=== PATIENT | female | born 1950 | race Caucasian/White ===

== ENCOUNTER 2021-07-14 00:53 | Inpatient (IN) ==
[2021-07-14] MEDS ORDERED: ACETAMINOPHEN 1,000 MG/100 ML BAG IV ONE (01:21)
[2021-07-14] MEDS ORDERED: 0.9 % SODIUM CHLORIDE 500 ML IV ONE ×4 (01:24→03:41)
[2021-07-14 01:45] LABS: POC Calcium, Ionized 1.1 (1.16-1.32); POC Creatinine 0.4 (0.6-1.2)
[2021-07-14 02:11] LABS: Basophils # (Auto) 0.03 K/mcL (0.00-0.30); Basophils % (Auto) 0.2 % (0.0-2.0); Eosinophils # (Auto) 0.03 K/mcL (0.00-0.70); Eosinophils % (Auto) 0.2 % (0.0-7.0); Hematocrit 47.8 % (34.1-44.9); Hemoglobin 16.2 g/dL (11.2-15.7); Lymphocytes # (Auto) 0.92 K/mcL (1.50-4.80); Lymphocytes % (Auto) 7.2 % (15.5-49.0); Mean Cell Volume 89.2 fL (80.0-100.0); Mean Corpuscular HGB Conc 33.9 g/dL (31.0-36.0); Mean Platelet Volume 8.9 fL (7.4-10.4); Monocytes # (Auto) 1.15 K/mcL (0.10-0.90); Neutrophils % (Auto) 83.4 % (38.0-78.0); Platelet Count 207 K/mcL (140-440); RBC 5.36 M/mcL (3.59-5.38); Red Cell Distribution Width 13.8 % (11.5-14.5); WBC 12.8 K/mcL (4.5-11.0)
[2021-07-14] MEDS ORDERED: DILTIAZEM 25 MG/5 ML VIAL IV ONE (02:13)
[2021-07-14] MEDS ORDERED: KETOROLAC 30 MG/ML VIAL IV ONE (02:13)
[2021-07-14] MEDS ORDERED: AZITHROMYCIN 500 MG in DEXTROSE 5% IN WATER 250 ML IV ONE (02:15)
[2021-07-14] MEDS ORDERED: cefTRIAXone 1 GM VIAL IV ONE (02:15)
[2021-07-14 02:22] LABS: ALT/SGPT 17 U/L (<40); AST/SGOT 28 U/L (<32); Alkaline Phosphatase 73 U/L (39-117); Bilirubin,Direct < 0.2 mg/dL (0-0.3); Bilirubin,Total 0.5 mg/dL (0.1-1.0); Globulin 3.3 gm/dL (2.2-3.7)
[2021-07-14] MEDS ORDERED: IPRATROPIUM/ALBUTEROL 3 ML AMPUL.NEB NEB ONE (02:58)
--- NOTE | 2021-07-14 05:33 | Emergency Department Note ---
SOB HPI General Chief Complaint: Shortness of Breath/Dyspnea Stated Complaint: shortness of breath Time Seen by Provider: 07/14/21 01:08 Source: family Mode of arrival: wheelchair Limitations: no limitations History of Present Illness HPI Narrative: Narrative: 71-year-old female history of obesity, A. fib, hypertension hypothyroid hyperlipidemia presenting to the ED for shortness of breath cough suspected COVID-19. Symptoms ongoing for the past several days. Patient is not vaccinated. She has had high fevers fatigue severe cough intermittently productive and runny nose. No chest pain. Has had some mild diarrhea. No new leg swelling, but has chronic mild edema. She took a home COVID test which was positive. But given her worsening dyspnea and cough came to the ER. No other complaints. Related Data Home Medications Medication Instructions Recorded Confirmed cholecalciferol (vitamin D3) 125 5,000 unit PO QDAY 12/05/18 10/06/20 mcg (5,000 unit) capsule coenzyme Q10 10 mg capsule (Co 10 mg PO ONCE 12/05/18 10/06/20 Q-10) Previous Rx's Medication Instructions Recorded gabapentin 100 mg capsule See Rx Instructions PO QHS #180 cap 10/18/20 liothyronine 25 mcg tablet See Rx Instructions .ROUTE 06/30/21 .COMPLEX #90 tab losartan 100 mg tablet See Rx Instructions .ROUTE 06/30/21 .COMPLEX #90 tablet levothyroxine 175 mcg tablet See Rx Instructions .ROUTE 07/11/21 .COMPLEX #90 tab Allergies Allergy/AdvReac Type Severity Reaction Status Date / Time No Known Drug Allergies Allergy Verified 10/06/20 10:37 Review of Systems ROS ROS Narrative: Narrative: All systems ED: reviewed and negative except as stated. [facility] Narrative Patient History Narrative: Narrative: Medical/Surgical/Family History All Active Problems Sepsis (Acute) Pneumonia (Acute) Cellulitis of right leg (Acute) Foot pain (Acute) Peripheral neuropathy (Acute) Hypertriglyceridemia (Chronic) Well adult exam (Chronic) Hypothyroidism (Chronic) Risk and functional assessment (Acute) HTN (hypertension) (Chronic) Medical History Atrial fibrillation Degenerative joint disease Eczema Foot pain Gout HTN (hypertension) Hypertension Hypertriglyceridemia Hypothyroidism Insulin resistance syndrome Palpitations Peripheral neuropathy Vitamin D deficiency Well adult exam Social History Smoking Status: Former smoker Exam Narrative Narrative: Narrative:Constitutional: normally developed, overall ill-appearing, labored breathing frequent cough Head: Normocephalic, atraumatic, Eyes: No Icterus, ENT: Moist mucus membranes, Neck: Supple, Cardiac: Tachycardic irregular heart sounds, palpable radial pulses, mild symmetric lower extremity pitting edema Pulmonary: Labored tachypneic with coughing fits, pulse ox 89% on room air, very coarse breath sounds with sporadic rhonchi and wheeze Gastrointestinal: Abdomen soft, non-distended, non-tender, Musculoskeletal: No gross deformities, well perfused Skin: warm, dry Neuro: Alert and oriented. General Limitations: no limitations Course Vital Signs Vital signs: Vital Signs Temperature 39.4 C H 07/14/21 00:54 Pulse Rate 142 H 07/14/21 00:54 Respiratory Rate 17 07/14/21 00:54 Blood Pressure 147/88 07/14/21 00:54 Pulse Oximetry (%) 92 07/14/21 00:54 Temperature 38.2 C H 07/14/21 03:39 Pulse Rate 83 07/14/21 06:40 Respiratory Rate 22 07/14/21 06:40 Blood Pressure 107/52 07/14/21 06:33 Pulse Oximetry (%) 95 07/14/21 06:40 MDM MDM Narrative Medical decision making narrative: Narrative: 71-year-old female multiple comorbidities presenting with dyspnea difficulty breathing cough fever and positive COVID-19 test at home. She is not vaccinated. Here in the ER she is labored, tachypneic, febrile, quite tachycardic meets multiple SIRS criteria, is in A. fib with rapid rate in the 140s, sat dipped to 89% RA. Gave her Toradol, Tylenol for high fever. Will give her IV fluid boluses of 500 cc aliquots as she does have some lower extremity edema already, will monitor for any signs of developing volume overload Patient maintaining adequate pulse ox on 2 L nasal cannula Twelve-lead EKG A. fib heart rate 134 QTC within normal diffuse Q waves no STEMI criteria no old EKG for comparison Chest x-ray per my interpretation mild patchy opacities Our rapid COVID test was negative, suspicion is still high we will send off PCR Given presentation but neg rapid covid, did cover her for possible bacterial p neumonia with Rocephin/azithromycin, although suspicion for COVID-19 is still very high Reevaluation fever markedly improved, her tachycardia resolving with IV fluids, we will continue. Patient feeling better following DuoNeb CBC leukocytosis 12.8 hemoglobin of 16, no thrombocytopenia D-dimer -0.36 Troponin -0.01 Initial blood gas VBG, pH 7.4, PCO2 36, PO2 55, lactate 2.1 Electrolytes does show a initial glucose of 215, she is not a known diabetic, will repeat Accu-Chek - 171 Reevaluation patient markedly improved comfortable on nasal cannula, her tachycardia has resolved, and vital signs are all stable. She has received 30 cc/kg bolus of ideal body weight given morbid obesity (2L IVF) Repeat lactic normal 1.2 Given her presentation, sepsis criteria, and the fact she is requiring some nasal cannula oxygenation do believe she meets criteria for admission. Hospitalist accepts admission, does agree we will start 6 mg dexamethasone at this time. Critical Care Time Total CriticalCare time was at least 45 minutes, excluding separately reportable procedures. There was a high probability of clinically significant/life threatening deterioration in the patient's condition which required my urgent intervention. Lab Data Result diagrams: 07/14/21 01:28 Labs: Lab Results 07/14/21 07/14/21 07/14/21 Range/Units 01:28 01:28 01:28 WBC 12.8 H (4.5-11.0) K/mcL RBC 5.36 (3.59-5.38) M/mcL Hgb 16.2 H (11.2-15.7) g/dL Hct 47.8 H (34.1-44.9) % POC Hct (36-48) MCV 89.2 (80.0-100.0) fL MCH 30.2 (26.0-34.0) pg MCHC 33.9 (31.0-36.0) g/dL RDW 13.8 (11.5-14.5) % Plt Count 207 (140-440) K/mcL MPV 8.9 (7.4-10.4) fL Neut % (Auto) 83.4 H (38.0-78.0) % Lymph % (Auto) 7.2 L (15.5-49.0) % Freestone % (Auto) 9.0 (1.0-12.0) % Eos % (Auto) 0.2 (0.0-7.0) % Baso % (Auto) 0.2 (0.0-2.0) % Lymph # (Auto) 0.92 L (1.50-4.80) K/mcL Freestone # (Auto) 1.15 H (0.10-0.90) K/mcL Eos # (Auto) 0.03 (0.00-0.70) K/mcL Baso # (Auto) 0.03 (0.00-0.30) K/mcL Absolute Neutrophils 10.69 H (1.80-8.00) K/mcL D-Dimer (0.27-0.50) ug/mL POC VBG pH (7.32-7.42) POC VBG pCO2 at Temp (41-51) POC VBG pO2 (25-40) POC VBG HCO3 (24-28) POC VBG Total CO2 (25-29) POC Venous O2 Sat (40-70) POC VBG Base Excess (-2-2) VBG Lactic Acid (0.5-2.0) mmol/L POC Sodium (133-145) POC Potassium (3.3-5.1) POC Chloride (96-108) POC Total CO2 (22-30) POC BUN (6-20) POC Creatinine (0.6-1.2) POC Glucose (70-105) POC Venous Lactate (0.5-2) POC WB Ioniz Calcium (1.16-1.32) Total Bilirubin 0.5 (0.1-1.0) mg/dL Direct Bilirubin < 0.2 (0-0.3) mg/dL AST 28 (<32) U/L ALT 17 (<40) U/L Alkaline Phosphatase 73 (39-117) U/L Troponin T < 0.01 (<0.03) ng/mL Total Protein 7.3 (5.9-8.4) gm/dL Albumin 4.0 (3.2-5.2) gm/dL Globulin 3.3 (2.2-3.7) gm/dL POC Troponin I (0.02-0.08) 07/14/21 07/14/21 07/14/21 Range/Units 01:28 01:29 01:31 WBC (4.5-11.0) K/mcL RBC (3.59-5.38) M/mcL Hgb (11.2-15.7) g/dL Hct (34.1-44.9) % POC Hct 47.0 (36-48) MCV (80.0-100.0) fL MCH (26.0-34.0) pg MCHC (31.0-36.0) g/dL RDW (11.5-14.5) % Plt Count (140-440) K/mcL MPV (7.4-10.4) fL Neut % (Auto) (38.0-78.0) % Lymph % (Auto) (15.5-49.0) % Freestone % (Auto) (1.0-12.0) % Eos % (Auto) (0.0-7.0) % Baso % (Auto) (0.0-2.0) % Lymph # (Auto) (1.50-4.80) K/mcL Freestone # (Auto) (0.10-0.90) K/mcL Eos # (Auto) (0.00-0.70) K/mcL Baso # (Auto) (0.00-0.30) K/mcL Absolute Neutrophils (1.80-8.00) K/mcL D-Dimer 0.36 (0.27-0.50) ug/mL POC VBG pH 7.44 H (7.32-7.42) POC VBG pCO2 at Temp 36.8 L (41-51) POC VBG pO2 55 H (25-40) POC VBG HCO3 24.7 (24-28) POC VBG Total CO2 26.0 (25-29) POC Venous O2 Sat 89.0 H (40-70) POC VBG Base Excess 1.0 (-2-2) VBG Lactic Acid (0.5-2.0) mmol/L POC Sodium 137 (133-145) POC Potassium 4.0 (3.3-5.1) POC Chloride 99 (96-108) POC Total CO2 24.0 (22-30) POC BUN 14 (6-20) POC Creatinine 0.4 L (0.6-1.2) POC Glucose 215 H (70-105) POC Venous Lactate 2.1 H (0.5-2) POC WB Ioniz Calcium 1.10 L (1.16-1.32) Total Bilirubin (0.1-1.0) mg/dL Direct Bilirubin (0-0.3) mg/dL AST (<32) U/L ALT (<40) U/L Alkaline Phosphatase (39-117) U/L Troponin T (<0.03) ng/mL Total Protein (5.9-8.4) gm/dL Albumin (3.2-5.2) gm/dL Globulin (2.2-3.7) gm/dL POC Troponin I (0.02-0.08) 07/14/21 07/14/21 Range/Units 01:31 04:58 WBC (4.5-11.0) K/mcL RBC (3.59-5.38) M/mcL Hgb (11.2-15.7) g/dL Hct (34.1-44.9) % POC Hct (36-48) MCV (80.0-100.0) fL MCH (26.0-34.0) pg MCHC (31.0-36.0) g/dL RDW (11.5-14.5) % Plt Count (140-440) K/mcL MPV (7.4-10.4) fL Neut % (Auto) (38.0-78.0) % Lymph % (Auto) (15.5-49.0) % Freestone % (Auto) (1.0-12.0) % Eos % (Auto) (0.0-7.0) % Baso % (Auto) (0.0-2.0) % Lymph # (Auto) (1.50-4.80) K/mcL Freestone # (Auto) (0.10-0.90) K/mcL Eos # (Auto) (0.00-0.70) K/mcL Baso # (Auto) (0.00-0.30) K/mcL Absolute Neutrophils (1.80-8.00) K/mcL D-Dimer (0.27-0.50) ug/mL POC VBG pH (7.32-7.42) POC VBG pCO2 at Temp (41-51) POC VBG pO2 (25-40) POC VBG HCO3 (24-28) POC VBG Total CO2 (25-29) POC Venous O2 Sat (40-70) POC VBG Base Excess (-2-2) VBG Lactic Acid 1.2 (0.5-2.0) mmol/L POC Sodium (133-145) POC Potassium (3.3-5.1) POC Chloride (96-108) POC Total CO2 (22-30) POC BUN (6-20) POC Creatinine (0.6-1.2) POC Glucose (70-105) POC Venous Lactate (0.5-2) POC WB Ioniz Calcium (1.16-1.32) Total Bilirubin (0.1-1.0) mg/dL Direct Bilirubin (0-0.3) mg/dL AST (<32) U/L ALT (<40) U/L Alkaline Phosphatase (39-117) U/L Troponin T (<0.03) ng/mL Total Protein (5.9-8.4) gm/dL Albumin (3.2-5.2) gm/dL Globulin (2.2-3.7) gm/dL POC Troponin I 0.01 L (0.02-0.08) ED POC Tests ED POC Tests: ARMANDO - SARS Antigen Negative Discharge Plan Patient/Caregiver Discharge Instructions Pt seen by [facility]/PA only: No Clinical Impression: Sepsis, Pneumonia Patient Disposition: Xfer As Inpt ([facility]) Condition: Serious Follow up with: Chance Mendez ARNP [Primary Care Provider] - Prescriptions: No Action coenzyme Q10 [Co Q-10] 10 mg capsule 10 mg PO ONCE 0RF cholecalciferol (vitamin D3) 5,000 unit capsule 5,000 unit PO QDAY 0RF gabapentin 100 mg capsule See Rx Instructions PO QHS Qty: 180 1RF Rx Instructions: alternating 300 mg and 500 mg q day PO every day at bedtime; liothyronine 25 mcg tablet See Rx Instructions .ROUTE .COMPLEX Qty: 90 0RF Dose Instruction: TAKE 1 TABLET EVERY DAY Rx Instructions: TAKE 1 TABLET EVERY DAY losartan 100 mg tablet See Rx Instructions .ROUTE .COMPLEX Qty: 90 0RF Dose Instruction: TAKE 1/2 TABLET TWICE DAILY Rx Instructions: TAKE 1/2 TABLET TWICE DAILY levothyroxine 175 mcg tablet See Rx Instructions .ROUTE .COMPLEX Qty: 90 0RF Dose Instruction: TAKE 1 TABLET EVERY DAY Rx Instructions: TAKE 1 TABLET EVERY DAY
[2021-07-14] MEDS ORDERED: DEXAMETHASONE 10 MG/ML VIAL IV ONE (06:53)
[2021-07-14] MEDS ORDERED: LACTULOSE 20 GM/30 ML ORAL.SOL PO PRN (07:48)
[2021-07-14] MEDS ORDERED: SENNOSIDES 1 TABLET PO PRN (07:48)
[2021-07-14] MEDS ORDERED: ONDANSETRON 4 MG/2 ML VIAL IV PRN (07:48)
[2021-07-14] MEDS: BUDESONIDE 0.5 MG/2 ML AMPUL.NEB NEB SCH ×2 (08:01→19:23)
--- NOTE | 2021-07-14 09:03 | XRay Report ---
HISTORY: Short of breath, Covid positive, weakness FINDINGS: There is a generalized haziness in the lower lobes bilaterally. Some of this is due to superimposed subcutaneous fat in the chest wall. However, underlying pneumonia is suspected, most apparent in the left lower lobe. The upper lung soto are clear. The heart is mildly enlarged but magnified by portable technique. IMPRESSION: Mild bibasilar pneumonia Interpreted and Authenticated by: Juan C Osuna 07/14/21
--- NOTE | 2021-07-14 09:22 | Internal Med History&Physical ---
HPI History of Present Illness Patient information: Note initiated : 07/14/21 at 9:16 am Service Date, if different from initiated Date: [as above] Patient: Kinza Zavala 71 y/o F admitted on 07/14/21 for SOB . Chief Complaint: [SOB] Chief complaint: Dyspnea History of present illness: Ms. Zavala is a 71 year old F with a past medical history significant for morbid obesity, hypothyroidism, and hypertension who presents to the hospital with progressive dyspnea. Of note, the patient is unvaccinated. She developed progressive shortness of breath, malaise, and a productive cough. She decided to come in to the ER for further management and evaluation as her symptoms continue to worsen. She lives at home with her who has not been tested as of yet. On presentation, she was hemodynamically stable and afebrile however she was hypoxemic with an O2 sat of 89% on ambient air. In the ER, she was found to have a white blood cell count of 12 and her chest x-ray was concerning for bibasilar opacities. The hospital service was asked admit the patient for further management and evaluation of her acute hypoxemic respiratory failure in the setting of SARS-CoV-2. Review of Systems All systems: reviewed and no additional remarkable complaints except as stated Constitutional Constitutional: Present as per HPI EENT Eyes: Present as per HPI; Absent blurry vision Cardiovascular Cardiovascular: Present as per HPI; Absent chest pain, dyspnea, dyspnea on exertion, leg edema or palpatations Respiratory Respiratory: Present as per HPI, cough, dyspnea and dyspnea on exertion; Absent wheezing or stridor Gastrointestinal Gastrointestinal: Present as per HPI; Absent abdominal pain, diarrhea, dyspha padma, hematemesis, melena, nausea or vomiting Musculoskeletal Musculoskeletal: Present as per HPI; Absent joint swelling, limited range of motion, muscle cramps, muscle weakness or myalgias Integumentary Integumentary: Present as per HPI; Absent erythema, new lesions, rash or wounds Neurological Neurological: Present as per HPI; Absent abnormal gait, behavioral changes, focal weakness, headache(s), loss of vision, numbness, sensory deficit or syncope Endocrine Endocrine: Absent change in body appearance, fatigue or heat intolerance Hematologic/Lymphatic Hematologic/Lymphatic: Present as per HPI PFSH PFSH All Active Problems (Updated 07/14/21 @ 09:20 by Sumanth Keys MD) Unvaccinated for covid-19 (Acute) Morbid obesity (Acute) COVID-19 (Acute) Sepsis (Acute) Pneumonia (Acute) Cellulitis of right leg (Acute) Foot pain (Acute) Peripheral neuropathy (Acute) Hypertriglyceridemia (Chronic) Well adult exam (Chronic) Hypothyroidism (Chronic) Risk and functional assessment (Acute) HTN (hypertension) (Chronic) Medical History Atrial fibrillation Degenerative joint disease Eczema Foot pain Gout HTN (hypertension) Hypertension Hypertriglyceridemia Hypothyroidism Insulin resistance syndrome Palpitations Peripheral neuropathy Vitamin D deficiency Well adult exam Social History marital status: occupational status: disabled occupation: Unable to work since 2007 MEDS/ALLERGIES Home Medications and Allergies Home Medications Medication Instructions Recorded Confirmed Type cholecalciferol (vitamin D3) 125 5,000 unit PO QDAY 12/05/18 07/14/21 History mcg (5,000 unit) capsule coenzyme Q10 10 mg capsule (Co 10 mg PO ONCE 12/05/18 07/14/21 History Q-10) liothyronine 25 mcg tablet See Rx Instructions .ROUTE 06/30/21 07/14/21 Rx .COMPLEX #90 tab losartan 100 mg tablet See Rx Instructions .ROUTE 06/30/21 07/14/21 Rx .COMPLEX #90 tablet levothyroxine 175 mcg tablet See Rx Instructions .ROUTE 07/11/21 07/14/21 Rx .COMPLEX #90 tab Allergies Allergy/AdvReac Type Severity Reaction Status Date / Time No Known Drug Allergies Allergy Verified 07/14/21 08:16 EXAM Constitutional Vitals: Temp Pulse Resp BP Pulse Ox 98.8 F 85 20 138/73 93 07/14/21 07:38 07/14/21 07:38 07/14/21 07:38 07/14/21 07:38 07/14/21 07:38 General appearance: mild distress and morbidly obese Head Head exam: Present atraumatic, normal inspection and normocephalic Eye Eye exam: Present EOMI, normal appearance and PERRL; Absent conjunctival injection ENT ENT exam: Present normal exam; Absent mucous membranes dry Neck Neck exam: Present full ROM; Absent lymphadenopathy Respiratory Respiratory exam: Present normal respiratory exam, accessory muscle use, decreased breath sounds and rhonchi; Absent CTAB, respiratory distress or wheezes Cardiovascular Cardiovascular exam: Present normal rate and rhythm and RRR; Absent JVD GI/Abdominal GI/Abdominal exam: Present normal bowel sounds and soft; Absent diminished bowel sounds, distended, guarding, mass, rebound or tenderness Neurological Exam Neurological exam: Present alert, CN II-XII intact and oriented X3 Psychiatric Psychiatric exam: Present normal affect and normal mood Skin Skin exam: Present intact and warm; Absent erythema, pallor, petechiae or rash DATA Data Completed and Pending Labs: Labs from last 24 hours 07/14/21 07/14/21 07/14/21 08:18 04:58 01:31 WBC RBC Hgb Hct POC Hct MCV MCH MCHC RDW Plt Count MPV Neut % (Auto) Lymph % (Auto) Barnes % (Auto) Eos % (Auto) Baso % (Auto) Lymph # (Auto) Barnes # (Auto) Eos # (Auto) Baso # (Auto) Absolute Neutrophils D-Dimer POC VBG pH POC VBG pCO2 at Temp POC VBG pO2 POC VBG HCO3 POC VBG Total CO2 POC Venous O2 Sat POC VBG Base Excess VBG Lactic Acid 1.2 POC Sodium Sodium Pending POC Potassium Potassium Pending POC Chloride Chloride Pending Carbon Dioxide Pending POC Total CO2 Anion Gap Pending POC BUN BUN Pending Creatinine Pending POC Creatinine GFR Calculation Pending Glucose Pending POC Glucose POC Venous Lactate Calcium Pending POC WB Ioniz Calcium Total Bilirubin Direct Bilirubin AST ALT Alkaline Phosphatase Troponin T Total Protein Albumin Globulin POC Troponin I 0.01 L 07/14/21 07/14/21 07/14/21 01:31 01:29 01:28 WBC RBC Hgb Hct POC Hct 47.0 MCV MCH MCHC RDW Plt Count MPV Neut % (Auto) Lymph % (Auto) Barnes % (Auto) Eos % (Auto) Baso % (Auto) Lymph # (Auto) Barnes # (Auto) Eos # (Auto) Baso # (Auto) Absolute Neutrophils D-Dimer 0.36 POC VBG pH 7.44 H POC VBG pCO2 at Temp 36.8 L POC VBG pO2 55 H POC VBG HCO3 24.7 POC VBG Total CO2 26.0 POC Venous O2 Sat 89.0 H POC VBG Base Excess 1.0 VBG Lactic Acid POC Sodium 137 Sodium POC Potassium 4.0 Potassium POC Chloride 99 Chloride Carbon Dioxide POC Total CO2 24.0 Anion Gap POC BUN 14 BUN Creatinine POC Creatinine 0.4 L GFR Calculation Glucose POC Glucose 215 H POC Venous Lactate 2.1 H Calcium POC WB Ioniz Calcium 1.10 L Total Bilirubin Direct Bilirubin AST ALT Alkaline Phosphatase Troponin T Total Protein Albumin Globulin POC Troponin I 07/14/21 07/14/21 07/14/21 01:28 01:28 01:28 WBC 12.8 H RBC 5.36 Hgb 16.2 H Hct 47.8 H POC Hct MCV 89.2 MCH 30.2 MCHC 33.9 RDW 13.8 Plt Count 207 MPV 8.9 Neut % (Auto) 83.4 H Lymph % (Auto) 7.2 L Barnes % (Auto) 9.0 Eos % (Auto) 0.2 Baso % (Auto) 0.2 Lymph # (Auto) 0.92 L Barnes # (Auto) 1.15 H Eos # (Auto) 0.03 Baso # (Auto) 0.03 Absolute Neutrophils 10.69 H D-Dimer POC VBG pH POC VBG pCO2 at Temp POC VBG pO2 POC VBG HCO3 POC VBG Total CO2 POC Venous O2 Sat POC VBG Base Excess VBG Lactic Acid POC Sodium Sodium POC Potassium Potassium POC Chloride Chloride Carbon Dioxide POC Total CO2 Anion Gap POC BUN BUN Creatinine POC Creatinine GFR Calculation Glucose POC Glucose POC Venous Lactate Calcium POC WB Ioniz Calcium Total Bilirubin 0.5 Direct Bilirubin < 0.2 AST 28 ALT 17 Alkaline Phosphatase 73 Troponin T < 0.01 Total Protein 7.3 Albumin 4.0 Globulin 3.3 POC Troponin I A/P Assessment and plan (1) Hypothyroidism: Status: Chronic Qualifiers: Hypothyroidism type: acquired Qualified Code(s): E03.9 - Hypothyroidism, unspecified (2) HTN (hypertension): Status: Chronic Qualifiers: Hypertension type: essential hypertension Qualified Code(s): I10 - Essential (primary) hypertension (3) Sepsis: Status: Acute (4) Pneumonia: Status: Acute (5) COVID-19: Status: Acute (6) Morbid obesity: Status: Acute (7) Unvaccinated for covid-19: Status: Acute Narrative A/P Narrative: The patient is morbidly obese, and with her advanced age she is high risk for developing worsening respiratory failure. She presented to the hospital with hypoxemia and meets criteria for remdesivir and dexamethasone. Of note her home COVID test was positive however her test here in the ER was negative. PCR is pending. We will add a respiratory panel. She will be empirically covered with ceftriaxone and Zithromax. She has been started on dexamethasone and remdesivir per recovery trial. Continue duo nebs and Pulmicort. Time Spent With Patient Time: Total time spent is greater than 50% in coordination of care (as documented) at patient's floor/unit and/or counseling patient: QUALITY VTE Deep Vein Thrombosis/Pulmonary Embolism Present on Admission: No
[2021-07-14] MEDS ORDERED: REMDESIVIR 200 MG in 0.9 % SODIUM CHLORIDE 250 ML IV ONE (09:30)
[2021-07-14 09:36] LABS: Blood Urea Nitrogen 12 mg/dL (8-23); Calcium 8.2 mg/dL (8.6-10.4); Carbon Dioxide 23 mmol/L (22-30); Chloride 100 mmol/L (96-108); Glomerular Filtration Rate 105; Glucose 151 mg/dL (70-105)
[2021-07-14] MEDS ORDERED: LEVOTHYROXINE SODIUM 175 MCG TABLET PO SCH (10:00)
[2021-07-14] MEDS: 0.9 % SODIUM CHLORIDE 10 ML SYRINGE IV SCH ×3 (10:00→20:28)
[2021-07-14] MEDS: DOCUSATE SODIUM 100 MG CAPSULE PO SCH ×2 (10:01→20:21)
[2021-07-14] MEDS: ENOXAPARIN 40 MG/0.4 ML SYRINGE SQ SCH (10:01)
[2021-07-14] MEDS: LEVOTHYROXINE 100 MCG TABLET PO SCH (11:37)
[2021-07-14] MEDS: LEVOTHYROXINE 75 MCG TABLET PO SCH (11:37)
[2021-07-14] MEDS: LIOTHYRONINE 5 MCG TABLET PO SCH (11:38)
[2021-07-14] MEDS: IPRATROPIUM/ALBUTEROL 3 ML AMPUL.NEB NEB SCH ×2 (13:13→19:23)
[2021-07-14] MEDS ORDERED: NON FORMULARY MEDICATION 1 DOSE MISCELL (Losartan 100 mg tablet) SCH (17:15)
[2021-07-14] MEDS: BENZONATATE 100 MG CAPSULE PO PRN (17:49)
[2021-07-14] MEDS: ACETAMINOPHEN 325 MG TABLET PO PRN (19:15)
[2021-07-14] MEDS: SUCRETS LOZENGE PO PRN (20:28)
[2021-07-14] MEDS: LOSARTAN 50 MG TABLET PO SCH (20:28)
[2021-07-14] MEDS: guaiFENesin 600 MG TAB.SR.12H PO SCH (20:28)
[2021-07-14] MEDS: GABAPENTIN 100 MG CAPSULE PO SCH ×2 (21:48→22:45)
[2021-07-15] MEDS: IPRATROPIUM/ALBUTEROL 3 ML AMPUL.NEB NEB SCH ×4 (01:27→19:27)
[2021-07-15] MEDS: SUCRETS LOZENGE PO PRN ×3 (01:39→22:52)
[2021-07-15] MEDS: ACETAMINOPHEN 325 MG TABLET PO PRN ×3 (05:05→22:54)
[2021-07-15 06:31] LABS: Basophils # (Auto) 0.03 K/mcL (0.00-0.30); Basophils % (Auto) 0.4 % (0.0-2.0); Eosinophils # (Auto) 0.01 K/mcL (0.00-0.70); Eosinophils % (Auto) 0.1 % (0.0-7.0); Hematocrit 43.4 % (34.1-44.9); Hemoglobin 14.1 g/dL (11.2-15.7); Lymphocytes # (Auto) 1.84 K/mcL (1.50-4.80); Lymphocytes % (Auto) 22.7 % (15.5-49.0); Mean Cell Volume 92.1 fL (80.0-100.0); Mean Corpuscular HGB Conc 32.5 g/dL (31.0-36.0); Mean Platelet Volume 8.9 fL (7.4-10.4); Monocytes # (Auto) 0.85 K/mcL (0.10-0.90); Monocytes % (Auto) 10.5 % (1.0-12.0); Neutrophils % (Auto) 66.3 % (38.0-78.0); Platelet Count 193 K/mcL (140-440); RBC 4.71 M/mcL (3.59-5.38); WBC 8.1 K/mcL (4.5-11.0)
[2021-07-15] MEDS: BUDESONIDE 0.5 MG/2 ML AMPUL.NEB NEB SCH ×2 (07:37→19:27)
[2021-07-15] MEDS ORDERED: REMDESIVIR 100 MG in 0.9 % SODIUM CHLORIDE 250 ML IV SCH (08:00)
[2021-07-15] MEDS: DOCUSATE SODIUM 100 MG CAPSULE PO SCH ×2 (08:31→20:30)
[2021-07-15] MEDS: 0.9 % SODIUM CHLORIDE 10 ML SYRINGE IV SCH ×3 (08:41→20:44)
[2021-07-15] MEDS: ENOXAPARIN 40 MG/0.4 ML SYRINGE SQ SCH (08:41)
[2021-07-15] MEDS: guaiFENesin 600 MG TAB.SR.12H PO SCH ×2 (08:42→20:30)
[2021-07-15] MEDS: LIOTHYRONINE 5 MCG TABLET PO SCH (08:42)
[2021-07-15] MEDS: LEVOTHYROXINE 100 MCG TABLET PO SCH (08:42)
[2021-07-15] MEDS: BENZONATATE 100 MG CAPSULE PO PRN ×3 (08:42→20:32)
[2021-07-15] MEDS: LEVOTHYROXINE 75 MCG TABLET PO SCH (08:42)
[2021-07-15] MEDS ORDERED: DEXAMETHASONE 4 MG TABLET PO SCH (09:00)
--- NOTE | 2021-07-15 09:05 | Internal Med Progress Note ---
SUBJECTIVE Subjective Patient information: Note initiated : 07/15/21 at 9:00 am Service Date, if different from initiated Date: [] Patient: Kinza Zavala 71 y/o F admitted on 07/14/21 for SOB . Chief Complaint: [SOB] Principal diagnosis: Acute hypoxemic respiratory failure 2/2 viral pneumonia Interval history: The patient states that she is feeling better day by day. She does have a productive cough that she continues to expectorate. Of note she is complaining of lower extremity paresthesia and neuropathic pain for which gabapentin causes diarrhea. We will trial Lyrica. I told her that her COVID-19 PCR was negative. She Constitutional Vitals: Vital Signs Temp Pulse Resp BP Pulse Ox 98 F 81 24 H 139/103 96 07/15/21 08:01 07/15/21 08:01 07/15/21 08:01 07/15/21 08:01 07/15/21 08:01 Period Temp Pulse Resp BP Sys/Keller Pulse Ox Last 24 Hr 97.6 F-99.2 F 51-102 15-28 103-165/58-103 91-100 Intake and Output 07/14/21 07/15/21 07/15/21 21:59 05:59 13:59 Intake Total 1440 350 Output Total 550 575 Balance 890 -225 Weight 158.893 kg Intake & Output: Intake & Output 07/14/21 07/15/21 07/15/21 21:59 05:59 13:59 Intake Total 1440 350 Output Total 550 575 Balance 890 -225 Weight 158.893 kg Intake: Oral 1440 350 Output: Void Amount 550 575 Other: Meal Dinner Percent of Meal Consumed 100% Feeding Ability Independent Urine Appearance Clear Clear Urine Color Bright Yellow Dark Yellow Urine Odor Normal Normal # Bowel Movements 0 Head Head exam: Present atraumatic and normal inspection Eye Eye exam: Present normal appearance ENT ENT exam: Present mucous membranes moist, normal exam and normal external ear exam Neck Neck exam: Present normal inspection Respiratory Respiratory exam: Present accessory muscle use, rhonchi and wheezes Cardiovascular Cardiovascular exam: Present normal rate and rhythm GI/Abdominal GI/Abdominal exam: Present normal bowel sounds Back Exam Back exam: Present normal inspection Neurological Exam Neurological exam: Present alert and oriented X3 Skin Skin exam: Present intact and warm OBJ DATA Labs CBC & Chem 7: 07/15/21 05:11 07/14/21 08:18 Labs: Abnormal Lab Results 07/14/21 07/14/21 07/14/21 08:18 01:31 01:31 WBC Hgb Hct Neut % (Auto) Lymph % (Auto) Lymph # (Auto) [place]oux # (Auto) Absolute Neutrophils POC VBG pH 7.44 H POC VBG pCO2 at Temp 36.8 L POC VBG pO2 55 H POC Venous O2 Sat 89.0 H Creatinine 0.4 L POC Creatinine Glucose 151 H POC Glucose POC Venous Lactate 2.1 H Calcium 8.2 L POC WB Ioniz Calcium POC Troponin I 0.01 L 07/14/21 07/14/21 01:29 01:28 WBC 12.8 H Hgb 16.2 H Hct 47.8 H Neut % (Auto) 83.4 H Lymph % (Auto) 7.2 L Lymph # (Auto) 0.92 L [place]oux # (Auto) 1.15 H Absolute Neutrophils 10.69 H POC VBG pH POC VBG pCO2 at Temp POC VBG pO2 POC Venous O2 Sat Creatinine POC Creatinine 0.4 L Glucose POC Glucose 215 H POC Venous Lactate Calcium POC WB Ioniz Calcium 1.10 L POC Troponin I Meds: Medications Acetaminophen (Acetaminophen 325 Mg Tablet) 650 mg PO Q6HP PRN; Protocol PRN Reason: Per Pain Protocol/Fever > 101 Last Admin: 07/15/21 05:05 Dose: 650 mg Documented by: Albuterol/Ipratropium (Ipratropium/Albuterol 3 Ml Ampul.Neb) 3 ml NEB Q6HRT [facility] Last Admin: 07/15/21 07:37 Dose: 3 ml Documented by: Benzonatate (Benzonatate 100 Mg Capsule) 100 mg PO TIDP PRN PRN Reason: Cough Last Admin: 07/15/21 08:42 Dose: 100 mg Documented by: Budesonide (Budesonide 0.5 Mg/2 Ml Ampul.Neb) 0.5 mg NEB Q12 [facility] Last Admin: 07/15/21 07:37 Dose: 0.5 mg Documented by: Docusate Sodium (Docusate Sodium 100 Mg Capsule) 100 mg PO BID [facility] Last Admin: 07/15/21 08:31 Dose: Not Given Documented by: Enoxaparin Sodium (Enoxaparin 40 Mg/0.4 Ml Syringe) 40 mg SQ DAILY [facility] Last Admin: 07/15/21 08:41 Dose: 40 mg Documented by: Guaifenesin (Guaifenesin 600 Mg Tab.Sr.12h) 600 mg PO BID [facility] Last Admin: 07/15/21 08:42 Dose: 600 mg Documented by: Lactulose (Lactulose 20 Gm/30 Ml Oral.Alyse) 10 gm PO DAILYP PRN PRN Reason: Constipation Levothyroxine Sodium (Levothyroxine 100 Mcg Tablet) 100 mcg PO ACB [facility] Last Admin: 07/15/21 08:42 Dose: 100 mcg Documented by: Levothyroxine Sodium (Levothyroxine 75 Mcg Tablet) 75 mcg PO QAMAC [facility] Last Admin: 07/15/21 08:42 Dose: 75 mcg Documented by: Liothyronine Sodium (Liothyronine 5 Mcg Tablet) 25 mcg PO DAILY [facility] Last Admin: 07/15/21 08:42 Dose: 25 mcg Documented by: Losartan Potassium (Losartan 50 Mg Tablet) 50 mg PO BID [facility] Last Admin: 07/14/21 20:28 Dose: 50 mg Documented by: Ondansetron HCl (Ondansetron 4 Mg/2 Ml Vial) 4 mg IV Q4HP PRN; Protocol PRN Reason: Nausea And Vomiting Senna (Sennosides 1 Tablet) 2 tab PO HSP PRN PRN Reason: Constipation Sodium Chloride (0.9 % Sodium Chloride 10 Ml Syringe) 10 ml IV Q8 [facility] Last Admin: 07/15/21 08:41 Dose: 10 ml Documented by: A/P Assessment and plan (1) Hypothyroidism: Status: Chronic Qualifiers: Hypothyroidism type: acquired Qualified Code(s): E03.9 - Hypothyroidism, unspecified (2) HTN (hypertension): Status: Chronic Qualifiers: Hypertension type: essential hypertension Qualified Code(s): I10 - Essential (primary) hypertension (3) Sepsis: Status: Acute (4) Pneumonia: Status: Acute (5) Morbid obesity: Status: Acute (6) Unvaccinated for covid-19: Status: Acute (7) Human metapneumovirus (hMPV) pneumonia: Status: Acute Narrative A/P Narrative: The patient is morbidly obese, and with her advanced age she is high risk for developing worsening respiratory failure. She presented to the hospital with hypoxemia and meets criteria for remdesivir and dexamethasone. Of note her home COVID test was positive however her test here in the ER was negative. PCR is pending. We will add a respiratory panel. She will be empirically covered with ceftriaxone and Zithromax. She has been started on dexamethasone and remdesivir per recovery trial. Continue duo nebs and Pulmicort. 07/14: The patient's COVID-19 PCR was negative. Her home COVID-19 test was likely a false positive. A respiratory panel was positive for human metapneumovirus which is likely contributing to her hypoxemia. We will continue management as above however discontinue remdesivir and dexamethasone. Time Spent With Patient Time: Total time spent is greater than 50% in coordination of care (as documented) at patient's floor/unit and/or counseling patient: Total time spent with greater than 50% in coordination of care (as documented) at patient's floor/unit and/or counseling patient:: 25 - 35 minutes QUALITY VTE Deep Vein Thrombosis/Pulmonary Embolism Present on Admission: No
[2021-07-15] MEDS: PREGABALIN 25 MG CAPSULE PO SCH ×2 (11:06→20:31)
[2021-07-15] MEDS: LOSARTAN 50 MG TABLET PO SCH ×2 (11:06→20:30)
--- NOTE | 2021-07-15 11:44 | EKG ---
Located Within [facility] Test Date: 2021-07-14 Pat Name: Kinza Zavala Department: ED Room: Gender: Female Patient Care Representative: : 1950 Requested By: Speedy Randall Order Number: [id number] Reading MD: Kelli Kidd D.O. Measurements Intervals Dexter Rate: 134 P: CA: QRS: -89 QRSD: 88 T: 75 QT: 313 QTc: 468 Interpretive Statements Atrial fibrillation Anterolateral infarct, age indeterminate Electronically Signed On 07-15-2021 11:44:41 PDT by Kelli Kidd D.O. /store/[email or web address]/[id number]/[id number]
[2021-07-16] MEDS: IPRATROPIUM/ALBUTEROL 3 ML AMPUL.NEB NEB SCH (01:12)
[2021-07-16] MEDS: SUCRETS LOZENGE PO PRN (01:45)
[2021-07-16] MEDS: 0.9 % SODIUM CHLORIDE 10 ML SYRINGE IV SCH (04:37)
[2021-07-16] MEDS: LEVOTHYROXINE 100 MCG TABLET PO SCH (07:06)
[2021-07-16] MEDS: LEVOTHYROXINE 75 MCG TABLET PO SCH (07:06)
[2021-07-16] MEDS: DOCUSATE SODIUM 100 MG CAPSULE PO SCH (08:49)
[2021-07-16] MEDS: guaiFENesin 600 MG TAB.SR.12H PO SCH (09:27)
[2021-07-16] MEDS: LOSARTAN 50 MG TABLET PO SCH (09:27)
[2021-07-16] MEDS: ENOXAPARIN 40 MG/0.4 ML SYRINGE SQ SCH (09:27)
[2021-07-16] MEDS: LIOTHYRONINE 5 MCG TABLET PO SCH (09:27)
[2021-07-16] MEDS: PREGABALIN 25 MG CAPSULE PO SCH (09:30)
--- NOTE | 2021-07-16 09:35 | Discharge Summary ---
Discharge Provider Provider Patient information: Note initiated : 07/16/21 at 9:35 am Service Date, if different from initiated Date: [as above] Patient: Kinza Zavala 71 y/o F admitted on 07/14/21 for SOB . Chief Complaint: [SOB] Date of admission: 07/14/21 07:38 Discharge date: 07/16/21 Primary care physician: JORDIN James Admitting clinician: Sumanth Keys Consults: 07/14/21 Consult to Physician [CONS] Stat Comment: Consulting Provider: Sumanth Keys Reason For Exam: Physician to Consult Discharging clinician: Sumanth Keys Discharge Meds Discharge Medications Home Medications cholecalciferol (vitamin D3) 125 mcg (5,000 unit) capsule 5,000 unit PO QDAY 12/05/18 [History Confirmed 07/14/21 Last Taken 07/12/21 08:00] coenzyme Q10 10 mg capsule (Co Q-10) 10 mg PO ONCE 12/05/18 [History Confirmed 07/14/21 Last Taken 07/12/21 08:00] liothyronine 25 mcg tablet See Rx Instructions .ROUTE .COMPLEX #90 tab 06/30/21 [Rx Confirmed 07/14/21 Last Taken 07/13/21 08:00] losartan 100 mg tablet See Rx Instructions .ROUTE .COMPLEX #90 tablet 06/30/21 [Rx Confirmed 07/14/21 Last Taken 07/13/21 08:00] levothyroxine 175 mcg tablet See Rx Instructions .ROUTE .COMPLEX #90 tab 07/11/21 [Rx Confirmed 07/14/21 Last Taken 07/14/21 08:00] albuterol sulfate 90 mcg/actuation aerosol inhaler 2 puff INHALATION Q6H PRN #8.5 g 07/16/21 [Rx Last Taken Unknown] benzonatate 100 mg capsule 100 mg PO .tid prn PRN #30 cap 07/16/21 [Rx Last Taken Unknown] COURSE Hospital Course Hospital course: Ms. Zavala is a 71 year old F with a past medical history significant for morbid obesity, hypothyroidism, and hypertension who presents to the hospital with progressive dyspnea. Of note, the patient is unvaccinated. She developed progressive shortness of breath, malaise, and a productive cough. She decided to come in to the ER for further management and evaluation as her symptoms continue to worsen. She lives at home with her who has not been tested as of yet. On presentation, she was hemodynamically stable and afebrile however she was hypoxemic with an O2 sat of 89% on ambient air. In the ER, she was found to have a white blood cell count of 12 and her chest x-ray was concerning for bibasilar opacities. The hospital service was asked admit the patient for further management and evaluation of her acute hypoxemic respiratory failure in the setting of SARS-CoV-2. Initially, the patient was suspected to have COVID-19 as her home test was positive. However her PCR came back negative. We did do a respiratory panel which was positive for human metapneumovirus. She was treated conservatively with bronchodilator nebulizers, supplemental O2, and pulmonary toileting. Within 48 hours, she has been weaned off supplemental O2 and is doing very well. She was able to walk with physical therapy. She is eager to return home. She will follow-up with her primary care physician in 1 week's time. She will be discharged home on albuterol and Tessalon Perles. Discharge diagnosis: Acute hypoxemic respiratory failure, human metapneumovirus Time Spent with Patient Time attestation: Total time spent providing and/or coordinating discharge services: Time spent: Greater than 30 minutes EXAM Constitutional Vitals: Temp Pulse Resp BP Pulse Ox 97.7 F 96 H 22 155/86 97 07/16/21 08:01 07/16/21 08:36 07/16/21 08:36 07/16/21 08:36 07/16/21 08:36 General appearance: morbidly obese; no no acute distress Head Head exam: Present atraumatic, normal inspection and normocephalic Eye Eye exam: Present EOMI, normal appearance and PERRL; Absent conjunctival injection ENT ENT exam: Present normal exam; Absent mucous membranes dry Neck Neck exam: Present full ROM; Absent lymphadenopathy Respiratory Respiratory exam: Present normal respiratory exam and CTAB; Absent decreased breath sounds, respiratory distress or wheezes Cardiovascular Cardiovascular exam: Present normal rate and rhythm and RRR; Absent JVD GI/Abdominal GI/Abdominal exam: Present normal bowel sounds and soft; Absent diminished bowel sounds, distended, guarding, mass, rebound or tenderness Neurological Exam Neurological exam: Present alert, CN II-XII intact and oriented X3 Psychiatric Psychiatric exam: Present normal affect and normal mood Skin Skin exam: Present intact and warm; Absent erythema, pallor, petechiae or rash Discharge Data Data Completed and Pending Labs on day of discharge: Preliminary micro results at discharge 07/14/21 02:36 Blood Culture - Preliminary Blood 07/14/21 02:30 Blood Culture - Preliminary Blood Discharge Plan Patient/Caregiver Discharge Instructions Activity: as per physical therapy Diet: Regular Diet Prescriptions: New benzonatate 100 mg Capsule 100 mg PO .tid prn PRN (Reason: Cough) Qty: 30 0RF albuterol sulfate 90 mcg/actuation HFA aerosol inhaler 2 puff inhalation Q6H PRN (Reason: shortness of breath or wheezing) Qty: 8.5 0RF Continued coenzyme Q10 [Co Q-10] 10 mg capsule 10 mg PO ONCE 0RF cholecalciferol (vitamin D3) 5,000 unit capsule 5,000 unit PO QDAY 0RF liothyronine 25 mcg tablet See Rx Instructions .ROUTE .COMPLEX Qty: 90 0RF Dose Instruction: TAKE 1 TABLET EVERY DAY Rx Instructions: TAKE 1 TABLET EVERY DAY losartan 100 mg tablet See Rx Instructions .ROUTE .COMPLEX Qty: 90 0RF Dose Instruction: TAKE 1/2 TABLET TWICE DAILY Rx Instructions: TAKE 1/2 TABLET TWICE DAILY levothyroxine 175 mcg tablet See Rx Instructions .ROUTE .COMPLEX Qty: 90 0RF Dose Instruction: TAKE 1 TABLET EVERY DAY Rx Instructions: TAKE 1 TABLET EVERY DAY Follow Up Plan Follow up with: Chance Mendez ARNP [Primary Care Provider] - Patient Disposition: Home, Self-Care Prognosis: Good I certify that the patient requires SNF services: No Overall status at discharge: patient is progressing back to baseline Discharge Orders: Discharge Order (Routine); Ordered 07/16/21 Ordered By: Sumanth MACIAS VTE Deep Vein Thrombosis/Pulmonary Embolism Present on Admission: No
== END 2021-07-16 11:30 | disposition home or self-care (01) | DRG 189 ==
LOC: ED 00:53 → ICU 07:38
PROVIDERS: ADMIT Student in an Organized Health Care Education/Training Program; ATTEND Student in an Organized Health Care Education/Training Program